=== PATIENT | male | born 1950 | race Asian ===

== ENCOUNTER 2017-02-26 22:02 | Emergency (ER) | payer OTHER ==
[~2017-02-26] VITALS: Ht 165.1 cm; Wt 69.0 kg
[2017-02-26 22:09] VITALS: Ht 165.1 cm; Wt 69.0 kg
[2017-02-26] MEDS ORDERED: [UNRECOGNIZED DRUG - OTHER] (23:39)
[2017-02-26] MEDS ORDERED: dm meds (23:39)
[2017-02-26] MEDS ORDERED: htn meds (23:39)
--- NOTE | 2017-02-26 23:41 | ERD ---
ER Documentation Chief Complaint Date/Time DATE: 02/26/17 TIME: 23:37 Chief Complaint right shoulder pain believes it's gout HPI 66-year-old male presents to emergency department for complaints of right shoulder pain started today. Patient drank some alcohol 4 hours prior to the pain, started to have the pain afterwards. Patient denies any trauma on affected area. Patient has history of gout, and is thinking that it may be gout flareup. Patient did not take any medications for pain. Patient denies any numbness or tingling. Patient denies any deformity. Patient has had the same type of pain before and it has been his gout flareup. Patient denies any redness or swelling. Patient denies any deformity. ROS All systems reviewed and are negative except as per history of present illness. Medications Home Meds Active Scripts Hydrocodone/Acetaminophen (Eure 5-325 Tablet) 1 Each Tablet, 1 TAB PO Q6H Y for SEVERE PAIN LEVEL 7-10, #20 TAB Prov:KATHLEEN PEÑA NP 02/27/17 Ibuprofen* (Motrin*) 600 Mg Tab, 600 MG PO Q6H Y for PAIN AND OR ELEVATED TEMP, #30 TAB Prov:KATHLEEN PEÑA RESISTOR COATER 02/27/17 Reported Medications [cardiac meds] Unknown Strength No Conflict Check 02/26/17 [htn meds] Unknown Strength No Conflict Check 02/26/17 [dm meds] Unknown Strength No Conflict Check 02/26/17 Allergies Allergies: Coded Allergies: No Known Allergy (Unverified , 02/26/17) PMhx/Soc Hx Miscellaneous Medical Probl: Yes (arthritis) Hx Alcohol Use: No Hx Substance Use: No Hx Tobacco Use: No Smoking Status: Never smoker FmHx Family History: No coronary disease, No diabetes, No other Physical Exam Vitals Vital Signs Date Time Temp Pulse Resp B/P Pulse Ox O2 Delivery O2 Flow Rate FiO2 02/26/17 22:09 97.6 83 20 135/85 99 Physical Exam GENERAL: The patient is well developed and appropriate for usual state of health, in no apparent distress. CHEST: Clear to auscultation bilaterally. There are no rales, wheezes or rhonchi. HEART: Regular rate and rhythm. No murmurs, clicks, rubs or gallops. No S3 or S4. ABDOMEN: Soft, nontender and nondistended. Good bowel sounds. No rebound or guarding. No gross peritonitis. No gross organomegaly or masses. No Zavala sign or McBurney point tenderness. BACK: No midline or flank tenderness. EXTREMITIES: Able To do full range of motion of the right shoulder without any restriction, mild tenderness on palpation on the anterior aspect of the right shoulder, no deformity noted, no crepitus noted. Equal pulses bilaterally. full range of motion of other joints of the body. Grossly neurovascularly intact. NEURO: Alert and oriented. Cranial nerves 2-12 intact. Motor strength in all 4 extremities with 5/5 strength. Sensation grossly intact. Normal speech and gait. SKIN: There is no apparent rash or petechia. The skin is warm and dry. HEMATOLOGIC AND LYMPHATIC: There is no evidence of excessive bruising or lymphedema. No gross cervical, axillary, or inguinal lymphadenopathy. Results 24 hrs Current Medications Medications (Trade) Dose Ordered Sig/Nicky Route PRN Reason Start Time Stop Time Status Last Admin Dose Admin Ketorolac Tromethamine (Toradol) 60 mg ONCE STAT IM 02/27/17 00:29 02/27/17 00:33 DC Patient was given medication for pain here in emergency department, after treatment, patient verbalized feeling much better. Patient's pain is improved. PROCEDURE: Right shoulder. CLINICAL INDICATION: Pain. TECHNIQUE: Three views of the right shoulder. COMPARISON: None. FINDINGS: There is no fracture, dislocation or bone destruction. There are degenerative osteophytes about the acromioclavicular joint. Bone mineralization is within normal limits. There is no radiopaque foreign body or abnormal calcification. IMPRESSION: No acute fracture or dislocation. Right AC joint arthrosis. .Maynor Zelaya MD, MD Date Time Electronically viewed and signed by .Maynor Zelaya MD, on 02/27/2017 00:26 .T/ CC: KATHLEEN PEÑA RESISTOR COATER Procedures/MDM Medical Decision Making: Patient's pain is most likely consistent with a contusion or a sprain, can be also from the arthritis noted in the x-ray, can be from his gout. There is no suspicion for neurovascular compromise. Patient has intact sensation and circulation of the affected extremity. There is low suspicion for septic arthritis. Patient does not have any fever. Radiology exams of the affected area does not show any fracture or dislocation. Disposition: Home. Patient is given prescription for ibuprofen for pain, Eure for severe pain. Patient was advised to elevate the affected area and apply ice on affected area. Patient was advised that if symptoms are worse, numbness, tingling, high fever, unable to move joint, worsening symptoms, to return to emergency department immediately. Otherwise, patient is advised to follow up with the primary care doctor in 5-7 days for reevaluation of symptoms. Departure Diagnosis: Primary Impression: Shoulder pain Laterality: right Chronicity: acute Qualified Code: M25.511 - Acute pain of right shoulder Condition: Stable Patient Instructions: Shoulder Pain (Uncertain Cause) Additional Instructions: Patient is given prescription for ibuprofen for pain, Eure for severe pain. Patient was advised to elevate the affected area and apply ice on affected area. Patient was advised that if symptoms are worse, numbness, tingling, high fever, unable to move joint, worsening symptoms, to return to emergency department immediately. Otherwise, patient is advised to follow up with the primary care doctor in 5-7 days for reevaluation of symptoms. KATHLEEN PEÑA NP Feb 26, 2017 23:41
--- NOTE | 2017-02-27 00:26 | RADRPT ---
PROCEDURE: Right shoulder. CLINICAL INDICATION: Pain. TECHNIQUE: Three views of the right shoulder. COMPARISON: None. FINDINGS: There is no fracture, dislocation or bone destruction. There are degenerative osteophytes about the acromioclavicular joint. Bone mineralization is within normal limits. There is no radiopaque fore ign body or abnormal calcification. IMPRESSION: No acute fracture or dislocation. Right AC joint arthrosis. .Maynor Zelaya MD, MD Date Time Electronically viewed and signed by .Maynor Zelaya MD, on 02/27/2017 00:26 .T/
[2017-02-27] MEDS ORDERED: KETOROLAC 60 MG INJ IM STA (00:29)
[2017-02-27] MEDS ORDERED: IBUP-1542 PO (00:31)
[2017-02-27] MEDS ORDERED: HYDR-906 PO (00:31)
== END 2017-02-27 00:35 | disposition home or self-care (01) ==
LOC: FTE 22:02 → E/R 02-27 00:35
DX: M25.511 Pain in right shoulder (principal)
CPT/HCPCS: 73030; J1885

== ENCOUNTER 2017-03-08 19:34 | Emergency (ER) | payer OTHER ==
[~2017-03-08] VITALS: Ht 170.2 cm; Wt 69.0 kg
[~2017-03-08 19:34] MED LIST: HYDR-906 PO; IBUP-1542 PO; [UNRECOGNIZED DRUG - OTHER]; dm meds; htn meds
[2017-03-08 19:36] VITALS: Ht 170.2 cm; Wt 69.0 kg
[2017-03-08] MEDS ORDERED: KETOROLAC 15 MG INJ IM STA (20:20)
[2017-03-08] MEDS ORDERED: ACETAMINOPHEN 325 MG TAB PO ONE (20:30)
--- NOTE | 2017-03-08 21:11 | ERD ---
ER Documentation Chief Complaint Date/Time DATE: 03/08/17 TIME: 21:06 Chief Complaint right shoulder pain , denies injury, hx- arthritis HPI This pleasant 66-year-old male patient presents to emergency department today with complaint of right shoulder pain. Patient has history of arthritis reports he has been seen here in this hospital, received a Toradol injection which helped with his pain. Patient states that unfortunately the day he was here the weight was extremely long and he left after waiting for 6 hours without being seen. Patient has been seen by his primary care physician, has an orthopedic referral next week. Patient reports current pain is 9/10 out of pain scale. He is unable to abduct or adduct at this time he is unable to move his arm forward, patient states once pain is controlled he is able to move his arm freely. She denies history of frozen shoulder, denies numbness or tingling to his fingers, denies any injury. Patient denies chest pain, shortness of breath, palpitations, or dizziness. Chart review PROCEDURE: Right shoulder. CLINICAL INDICATION: Pain. TECHNIQUE: Three views of the right shoulder. COMPARISON: None. FINDINGS: There is no fracture, dislocation or bone destruction. There are degenerative osteophytes about the acromioclavicular joint. Bone mineralization is within normal limits. There is no radiopaque foreign body or abnormal calcification. IMPRESSION: No acute fracture or dislocation. Right AC joint arthrosis. .Maynor Zelaya MD, MD Date Time Electronically viewed and signed by .Maynor Zelaya MD, MD on 02/27/2017 00:26 ROS All systems reviewed and are negative except as per history of present illness. Medications Home Meds Active Scripts Hydrocodone/Acetaminophen ([place] 5-325 Tablet) 1 Each Tablet, 1 TAB PO Q6H Y for SEVERE PAIN LEVEL 7-10, #20 TAB Prov:KATHLEEN PEÑA HEEL ATTACHER [employer]OD 02/27/17 Ibuprofen* (Motrin*) 600 Mg Tab, 600 MG PO Q6H Y for PAIN AND OR ELEVATED TEMP, #30 TAB Prov:KATHLEEN PEÑA NP 02/27/17 Reported Medications [cardiac meds] Unknown Strength No Conflict Check 02/26/17 [htn meds] Unknown Strength No Conflict Check 02/26/17 [dm meds] Unknown Strength No Conflict Check 02/26/17 Allergies Allergies: Coded Allergies: No Known Allergy (Unverified , 02/26/17) PMhx/Soc Hx Miscellaneous Medical Probl: Yes (arthritis) Hx Alcohol Use: No Hx Substance Use: No Hx Tobacco Use: No Smoking Status: Never smoker Physical Exam Vitals Vital Signs Date Time Temp Pulse Resp B/P Pulse Ox O2 Delivery O2 Flow Rate FiO2 03/08/17 19:36 97.4 87 20 176/94 100 Vital stable, triage note reviewed Physical Exam Const: Obviously uncomfortable, no acute distress Head: Atraumatic Eyes: Normal Conjunctiva ENT: Normal External Ears, Nose and Mouth. Neck: Resp: Cardio: Abd: Skin: Back: Ext: Upper Extremity -right arm Skin: No laceration, or evidence of external trauma Compartments: Soft Motor: Passive range of motion minimal, and able to abduct or abduct. Unable to raise arm forward. Sensation: Intact shoulder/pinky/middle finger/thumb web space Bones: Point tender humerus Snuffbox: Nontender Joints: No effusion Pulses/Perfusion: 2+ radial, Capillary refill < 2 seconds Neur: Awake and alert Psych: Normal Mood and Affect Results 24 hrs Current Medications Medications (Trade) Dose Ordered Sig/Nicky Route PRN Reason Start Time Stop Time Status Last Admin Dose Admin Ketorolac Tromethamine (Toradol) 15 mg ONCE STAT IM 03/08/17 20:20 03/08/17 20:22 DC 03/08/17 20:50 Acetaminophen (Tylenol Tab) 650 mg ONCE ONCE PO 03/08/17 20:30 03/08/17 20:31 DC 03/08/17 20:50 Procedures/MDM This pleasant 66-year-old male patient presents to the emergency department today for evaluation of right shoulder pain. History of arthritis. Patient has been seen previously here in emergency room left without fully being seen had x-rays taken at that time with findings: There is no fracture, dislocation or bone destruction. There are degenerative osteophytes about the acromioclavicular joint. Bone mineralization is within normal limits. There is no radiopaque foreign body or abnormal calcification. Patient has appointment with rn orthopedic in approximately 7 days patient is here today for pain control. He has no associated numbness or tingling. He has no cardiovascular complaints or irregularity. Patient is taking diclofenace with no relief of symptoms. Patient is treated with a Toradol injection and Tylenol in emergency department with pain decreasing to 7/10 on pain scale. I feel patient can be discharged home with Ultram and a short dose of prednisone. I feel the patient is stable for discharge at this time. I have discussed results , examination findings, the treatment plan with the patient and family present prior to discharge. Indications for emergent reevaluation, side effects of medication were also discussed. All questions were answered. Patient verbalizes understanding and agrees with plan of care. Departure Diagnosis: Primary Impression: Degenerative joint disease, shoulder, right Osteoarthritis type: unspecified Qualified Code: M19.011 - Osteoarthritis of right shoulder, unspecified osteoarthritis type Condition: Good Patient Instructions: Osteoarthritis: Managing Pain Additional Instructions: Thank you for for coming to [facility] for your care today. Please ask your nurse or provider if you have questions about your care today and do not leave until all your questions have been answered. Please use any medications given as directed and follow-up with your doctor (or the doctor you were referred to) in the next 2-3 days. If you do not have a primary care doctor you may follow up at the [facility] (listed below). You may also use motrin and tylenol as needed for fever and/or pain unless instructed otherwise by your provider or nurse. Indications for more urgent follow-up have been discussed, but you may return to the Emergency Department at ANY time for any worrisome or worsening symptoms. If you have abdominal pain, please know that no test or exam you received is perfect and you should follow up within 8 hours for continued pain. If you had any imaging studies today, such as an X-Ray or CT Scan, these studies will be reviewed later by a radiologist. You will be called if there are important findings that were not identified today, so make sure the contact information you provided at registration is correct. If you received any narcotic pain control medicine today, such as Vicodin, Morphine or Dilaudid, your coordination and judgment may be affected for a number of hours. Please do not drive or operate heavy machinery, and you may want someone to assist you at home. If you were given a prescription for narcotic medication, be aware that it is very addictive- use sparingly and only if necessary. HARRY FABIAN Mar 08, 2017 21:11
[2017-03-08] MEDS ORDERED: TRAM50TA2 PO (21:23)
[2017-03-08] MEDS ORDERED: PRED20TA PO (21:23)
== END 2017-03-08 21:38 | disposition home or self-care (01) ==
LOC: FTE 19:34
DX: M19.011 Primary osteoarthritis, right shoulder (principal)
CPT/HCPCS: 96372; 99284; J1885

== ENCOUNTER 2017-05-04 10:29 | Emergency (ER) | payer OTHER ==
[~2017-05-04] VITALS: Ht 157.5 cm; Wt 60.0 kg
[~2017-05-04 10:29] MED LIST changes: +PRED20TA PO; +TRAM50TA2 PO
[2017-05-04 10:32] VITALS: Ht 157.5 cm; Wt 60.0 kg
[2017-05-04] MEDS ORDERED: HYDROCODONE/APAP (5/325) TAB PO ONE (11:00)
--- NOTE | 2017-05-04 12:34 | RADRPT ---
PROCEDURE: XR Knee. CLINICAL INDICATION: Knee pain TECHNIQUE: Three views of the left knee are available for review. COMPARISON: None available FINDINGS: The medial and lateral femorotibial compartments are preserved. Mild marginal productive change is noted at the patella. There is a faint cortical density seen at the lateral margin of the tibial vera teau which could be related to avulsion fracture, although age indeterminate. Large joint effusion. Atherosclerotic vascular calcifications are present. IMPRESSION: 1. No acute osseous abnormality. 2. Faint cortical fragment at the lateral margin of the tibial plateau, which could represent a cap sular avulsion injury although age indeterminate. Consider MRI for better evaluation of the soft ti ssues if there is concern for ligament injury. 3. Large joint effusion. RPTAT: EE .Zane Saravia MD, MD Date Time Electronically viewed and signed by .Zane Saravia MD, on 05/04/2017 12:34 .d/
--- NOTE | 2017-05-04 12:34 | RADRPT ---
PROCEDURE: XR Femur. CLINICAL INDICATION: Knee/distal femoral injury TECHNIQUE: AP and lateral views of the left femur were obtained. COMPARISON: No prior studies are available for comparison. FINDINGS: There is no acute osseous abnormality or evidence of fracture. Mild nonuniform narrowing is noted a bout the left hip. Mild symphysis pubis degeneration is seen. Marginal productive changes seen at the partially assessed SI joints. Atherosclerotic vascular calcifications are present. IMPRESSION: 1. No acute osseous abnormality. 2. Mild left hip arthrosis. RPTAT: EE .Zane Saravia MD, MD Date Time Electronically viewed and signed by .Zane Saravia MD, MD on 05/04/2017 12:34 .d/
[2017-05-04] MEDS ORDERED: HYDR-906 PO (13:07)
[2017-05-04] MEDS ORDERED: IBUP400T22 PO (13:15)
--- NOTE | 2017-05-04 15:51 | ERD ---
ER Documentation Chief Complaint Date/Time DATE: 05/04/17 TIME: 15:46 Chief Complaint LEFT KNEE PAIN, HEAVY OBJECT FELL ON IT 2 DAYS AGO HPI 66-year-old male patient with a past medical history of diabetes presents to the ED complaining of a left knee injury that occurred 2 days ago. 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 Denies any fever, weakness, numbness or tingling , loss of sensation, loss of range of motion, nausea, vomiting. ROS All systems reviewed and are negative except as per history of present illness. Medications Home Meds Active Scripts Ibuprofen* (Motrin*) 400 Mg Tab, 400 MG PO Q6, #30 TAB Prov:GABE WHALEY PA-C 05/04/17 Hydrocodone/Acetaminophen (Kingston 5-325 Tablet) 1 Each Tablet, 1 TAB PO Q6H Y for PAIN, #14 TAB Prov:GABE WHALEY PA-C 05/04/17 Tramadol HCl (Tramadol HCl) 50 Mg Tablet, 50 MG PO Q6, #20 TAB Prov:RUI,HARRY 03/08/17 Prednisone* (Prednisone*) 20 Mg Tab, 40 MG PO DAILY for 4 Days, TAB Prov:RUI,HARRY 03/08/17 Hydrocodone/Acetaminophen ([place] 5-325 Tablet) 1 Each Tablet, 1 TAB PO Q6H Y for SEVERE PAIN LEVEL 7-10, #20 TAB Prov:KATHLEEN PEÑA NP 02/27/17 Ibuprofen* (Motrin*) 600 Mg Tab, 600 MG PO Q6H Y for PAIN AND OR ELEVATED TEMP, #30 TAB Prov:KATHLEEN PEÑA NP 02/27/17 Reported Medications [cardiac meds] Unknown Strength No Conflict Check 02/26/17 [htn meds] Unknown Strength No Conflict Check 02/26/17 [dm meds] Unknown Strength No Conflict Check 02/26/17 Allergies Allergies: Coded Allergies: No Known Allergy (Unverified , 02/26/17) PMhx/Soc Medical and Surgical Hx: pt denies Medical Hx, pt denies Surgical Hx Hx Miscellaneous Medical Probl: Yes (arthritis) Hx Alcohol Use: No Hx Substance Use: No Hx Tobacco Use: No Smoking Status: Never smoker Physical Exam Vitals Vital Signs Date Time Temp Pulse Resp B/P Pulse Ox O2 Delivery O2 Flow Rate FiO2 05/04/17 10:32 98.1 86 20 126/71 99 Physical Exam Const: [id number], well-nourished. In no acute distress. Head: Atraumatic, normocephalic Eyes: Normal Conjunctiva without injection ENT: Normal external ear, nose and mouth. Neck: Full range of motion. No meningismus. Resp: Clear to auscultation bilaterally. No wheezing, rhonchi, rales, or crackles. No accessory muscle use. No retractions. Cardio: Regular rate and rhythm, no murmurs Skin: No petechiae or rashes Back: No midline tenderness. No CVA tenderness. Ext: No cyanosis, or edema. Cap refill less than 2 seconds. Distal pulses intact bilaterally. Tenderness to palpation of the left medial and lateral aspect of patient's left knee. Ecchymosis noted over the distal femur. No erythema noted. Slight edema noted over the superior knee. Patient was able to flex, extend bilateral knees and all other extremities have full range of motion. Neur: Awake and alert. Normal gait and coordination. Muscle strength 5/5. Sensation intact bilaterally. Psych: Normal Mood and Affect Results 24 hrs Current Medications Medications (Trade) Dose Ordered Sig/Nicky Route PRN Reason Start Time Stop Time Status Last Admin Dose Admin Acetaminophen/ Hydrocodone Bitart (King[place] (5/325)) 1 tab ONCE ONCE PO 05/04/17 11:00 05/04/17 11:01 DC 05/04/17 10:54 Procedures/MDM This is a 66-year-old male patient with a past medical history of diabetes presents to the ED with a left knee injury. Patient is afebrile and nontoxic- appearing. Patient has normal vital signs. A left knee x-ray, left femur x- ray was ordered to further evaluate patient. PROCEDURE: XR Femur. CLINICAL INDICATION: Knee/distal femoral injury TECHNIQUE: AP and lateral views of the left femur were obtained. COMPARISON: No prior studies are available for comparison. FINDINGS: There is no acute osseous abnormality or evidence of fracture. Mild nonuniform narrowing is noted about the left hip. Mild symphysis pubis degeneration is seen. Marginal productive changes seen at the partially assessed SI joints. Atherosclerotic vascular calcifications are present. IMPRESSION: 1. No acute osseous abnormality. 2. Mild left hip arthrosis. PROCEDURE: XR Knee. CLINICAL INDICATION: Knee pain TECHNIQUE: Three views of the left knee are available for review. COMPARISON: None available FINDINGS: The medial and lateral femorotibial compartments are preserved. Mild marginal productive change is noted at the patella. There is a faint cortical density seen at the lateral margin of the tibial plateau which could be related to avulsion fracture, although age indeterminate. Large joint effusion. Atherosclerotic vascular calcifications are present. IMPRESSION: 1. No acute osseous abnormality. 2. Faint cortical fragment at the lateral margin of the tibial plateau, which could represent a capsular avulsion injury although age indeterminate. Consider MRI for better evaluation of the soft tissues if there is concern for ligament injury. 3. Large joint effusion. Patient is placed in a left knee immobilizer. Crutches were given to help with ambulation. Splint Assessment: Neurovascularly intact pre and post splint placement with good fit. Patient could likely have a faint cortical fragment at the lateral margin of the tibial plateau, which could represent a capsular avulsion injury although age indeterminate. Patient's extremity symptoms have stabilized while they have been evaluated in the department and are appropriate for outpatient follow up. No evidence of dislocations, compartment syndrome, neurologic injury, vascular injury, open joint, open fracture, tendon laceration, septic arthritis , osteomyelitis, DVT, foreign body, or other emergent conditions. This case was discussed with with my supervising physician, Dr. Salter who agreed with the management and discharge plan. Discharge medications: Ibuprofen, [place] Follow up with primary care physician in 1-2 days for a referral to orthopedic physician. Instructed patient to return to the ED sooner for any worsening symptoms. Patient's questions were answered. Patient understood and agreed with discharge plan. Patient discharged stable. Departure Diagnosis: Primary Impression: Knee injury Encounter type: initial encounter Laterality: left Qualified Code: S89.92XA - Knee injury, left, initial encounter Condition: Stable Patient Instructions: Reducing Knee Pain and Swelling, Fracture, Knee Referrals: JOLENE DOWLING MD (PCP) [facility] YOU HAVE RECEIVED A MEDICAL SCREENING EXAM AND THE RESULTS INDICATE THAT YOU DO NOT HAVE A CONDITION THAT REQUIRES URGENT TREATMENT IN THE EMERGENCY DEPARTMENT. FURTHER EVALUATION AND TREATMENT OF YOUR CONDITION CAN WAIT UNTIL YOU ARE SEEN IN YOUR DOCTORS OFFICE WITHIN THE NEXT 1-2 DAYS. IT IS YOUR RESPONSIBILITY TO MAKE AN APPOINTMENT FOR FOLOW-UP CARE. IF YOU HAVE A PRIMARY DOCTOR --you should call your primary doctor and schedule an appointment IF YOU DO NOT HAVE A PRIMARY DOCTOR YOU CAN CALL OUR PHYSICIAN REFERRAL HOTLINE AT IF YOU CAN NOT AFFORD TO SEE A PHYSICIAN YOU CAN CHOSE FROM THE FOLLOWING [facility] [address] [facility] [address] [facility] [address] [facility] [address] [facility] [address] [facility]. [facility] [address] [facility] [facility] YOU HAVE RECEIVED A MEDICAL SCREENING EXAM AND THE RESULTS INDICATE THAT YOU DO NOT HAVE A CONDITION THAT REQUIRES URGENT TREATMENT IN THE EMERGENCY DEPARTMENT. FURTHER EVALUATION AND TREATMENT OF YOUR CONDITION CAN WAIT UNTIL YOU ARE SEEN IN YOUR DOCTORS OFFICE WITHIN THE NEXT 1-2 DAYS. IT IS YOUR RESPONSIBILITY TO MAKE AN APPOINTMENT FOR FOLOW-UP CARE. IF YOU HAVE A PRIMARY DOCTOR --you should call your primary doctor and schedule and appointment IF YOU DO NOT HAVE A PRIMARY DOCTOR YOU CAN CALL OUR PHYSICIAN REFERRAL HOTLINE AT . IF YOU CAN NOT AFFORD TO SEE A PHYSICIAN YOU CAN CHOSE FROM THE FOLLOWING PENDING SALE TO [facility]: [facility] [address] [place] [address] [facility] [address] [place] [address] [facility] [address] [place] [address] [facility] Urgent Care 7 a.m.- 11 p.m. Every Day of the Week NO APPOINTMENT OR AUTHORIZATION NEEDED SO [facility] Hours: Mon-Fri 9:00 AM - 5:00 PM Additional Instructions: FOLLOW UP WITH YOUR PRIMARY CARE PHYSICIAN TOMORROW for a referral to orthopedic physician for further evaluation, treatment, and MRI.Return to this facility if you are not improving as expected. GABE WHALEY PA-C May 04, 2017 15:51
== END 2017-05-04 14:15 | disposition home or self-care (01) ==
LOC: FTE 10:29
DX: S89.92XA Unspecified injury of left lower leg, initial encounter (principal); E11.9 Type 2 diabetes mellitus without complications; W20.8XXA Other cause of strike by thrown, projected or falling object, initial encounter; Y92.9 Unspecified place or not applicable
CPT/HCPCS: 73550; 73562

== ENCOUNTER 2019-01-18 16:30 | Emergency (ER) | payer OTHER ==
[~2019-01-18] VITALS: Wt 91.0 kg
[~2019-01-18 16:30] MED LIST changes: +HYDR-4011 PO; -HYDR-906 PO; +IBUP-1561 PO
[2019-01-18 16:33] VITALS: BP 154/86; PULSE 72; RESP 18
[2019-01-18] MEDS ORDERED: ONDANSETRON (ODT) 4 MG TAB ODT STA (19:09)
[2019-01-18] MEDS ORDERED: morphine 4 MG/ML VIAL IM STA (19:09)
--- NOTE | 2019-01-18 19:16 | ERD ---
ER Documentation Chief Complaint Chief Complaint LAC TO RIGHT SHOULDER HPI Patient presents with complaint of right upper arm pain and laceration s/p seeing machine that "cuts Belia's" that grabbed the sleeve of his right arm pulling his arm into the machine. 1630 today. 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 ROS All systems reviewed and are negative except as per history of present illness. Medications Home Meds Active Scripts Hydrocodone/Acetaminophen ([place] 5-325 Tablet) 1 Each Tablet, 1 TAB PO Q6H PRN for PAIN for 5 Days, #15 TAB Prov:HERNESTO MARTÍNEZ NP 01/18/19 Cephalexin* (Cephalexin*) 500 Mg Capsule, 500 MG PO BID for 5 Days, #10 CAP Prov:HERNESTO MARTÍNEZ NP 01/18/19 Ibuprofen* (Motrin*) 400 Mg Tab, 400 MG PO Q6, #30 TAB Prov:GABE WHALEY PA-C 05/04/17 Hydrocodone/Acetaminophen ([place] 5-325 Tablet) 1 Each Tablet, 1 TAB PO Q6H PRN for PAIN, #14 TAB Prov:GABE WHALEY PA-C 05/04/17 Tramadol HCl (Tramadol HCl) 50 Mg Tablet, 50 MG PO Q6, #20 TAB Prov:RUI,HARRY 03/08/17 Prednisone* (Prednisone*) 20 Mg Tab, 40 MG PO DAILY for 4 Days, TAB Prov:RUI,HARRY 03/08/17 Hydrocodone/Acetaminophen ([place] 5-325 Tablet) 1 Each Tablet, 1 TAB PO Q6H PRN for SEVERE PAIN LEVEL 7-10, #20 TAB Prov:KATHLEEN PEÑA NP 02/27/17 Ibuprofen* (Motrin*) 600 Mg Tab, 600 MG PO Q6H PRN for PAIN AND OR ELEVATED TEMP, #30 TAB Prov:KATHLEEN PEÑA NP 02/27/17 Reported Medications [cardiac meds] Unknown Strength No Conflict Check 02/26/17 [htn meds] Unknown Strength No Conflict Check 02/26/17 [dm meds] Unknown Strength No Conflict Check 02/26/17 Allergies Allergies: Coded Allergies: No Known Allergy (Unverified , 02/26/17) PMhx/Soc Medical and Surgical Hx: pt denies Surgical Hx Hx Cardiac Disorders: Yes (HTN) Hx Miscellaneous Medical Probl: Yes (arthritis) Hx Alcohol Use: Yes Hx Substance Use: No Hx Tobacco Use: Yes Smoking Status: Light tobacco smoker Physical Exam Vitals Vital Signs Date Temp Pulse Resp B/P (MAP) Pulse Ox O2 O2 Flow FiO2 Time Delivery Rate 01/18/19 98.1 72 18 154/86 99 16:33 (108) Physical Exam Const: No acute distress Head: Atraumatic Eyes: Normal Conjunctiva ENT: Normal External Ears, Nose and Mouth. Neck: Full range of motion. No meningismus. Resp: Clear to auscultation bilaterally Cardio: Regular rate and rhythm, no murmurs Abd: Soft, non tender, non distended. Normal bowel sounds Skin: No petechiae or rashes Back: No midline or flank tenderness Ext: RUE: brusing to upper arm, large laceration to bicep area, sensation intact, pulses +2, flexion limited to 45 degrees, point tenderness at head of humerus Neur: Awake and alert Psych: Normal Mood and Affect Results 24 hrs Current Medications Medications Dose Sig/Nicky Start Time Status Last (Trade) Ordered Route PRN Stop Time Admin Dose Reason Admin Ondansetron 4 mg ONCE STAT 01/18/19 DC 01/18/19 HCl (Zofran ODT 19:09 01/18/19 19:39 Odt) 19:11 Morphine 4 mg ONCE STAT 01/18/19 DC 01/18/19 Sulfate IM 19:09 01/18/19 19:40 (morphine) 19:11 Lidocaine/ 20 ml ONCE ONCE 01/18/19 DC Epinephrine INJ 20:30 01/18/19 (Xylocaine 20:31 2%/ Epi (Mdv) 20 ml) Diphtheria/ 0.5 ml ONCE ONCE 01/18/19 DC 01/18/19 Tetanus/Acell IM* 21:30 01/18/19 21:29 Pertussis 21:31 (Adacel) LACERATION REPAIR Wound was copiously irrigated with normal saline. Wound was prepared in standard sterile fashion. Adequate anesthesia was obtained with lidocaine 1% with epi. Wound had 2 edges that joined at a 90 degree angle with the superior surface 3 cm and superior surface 2 cm. A total of 7 sutures of 4-0 Ethilon were used in a simple interrupted fashion. +CSM post-procedure. Wound was dressed with Telfa and Kerlix dressing. Patient was instructed on care of wound and signs of infection and when to return for recheck and to have sutures rem harley. Patient verbalized understanding and tolerated procedure well. Procedures/MDM X-rays of shoulder arm did not show fracture, location, or presence of foreign body. Patient states he has primary care physician and is reliable for close follow-up with physician. Verbalizes understanding of care of wound and need for close follow-up. Patient patient and daughter verbalized understanding of discharge instructions. Patient is being discharged for follow-up with primary care pancho murray. The laceration did not appear to have any tendon involvement or neurovascular compromise. Departure Diagnosis: Primary Impression: Laceration Additional Impression: Shoulder sprain HERNESTO MARTÍNEZ NP Jan 18, 2019 19:16
[2019-01-18] MEDS ORDERED: LIDOCAINE 2%/EPI (MDV) 20ML INJ INJ ONE (20:30)
[2019-01-18] MEDS ORDERED: DIPHTH/TET/ACEL PERTUSS (ADULT) 0.5 ML VIAL IM* ONE (21:30)
[2019-01-18] MEDS ORDERED: CEPH500C PO (21:31)
[2019-01-18] MEDS ORDERED: HYDR-4011 PO (21:31)
== END 2019-01-18 22:08 | disposition home or self-care (01) ==
LOC: FTE 16:30
DX: S41.011A Laceration without foreign body of right shoulder, initial encounter (principal); I10 Essential (primary) hypertension; F17.210 Nicotine dependence, cigarettes, uncomplicated; W31.1XXA Contact with metalworking machines, initial encounter; Y92.89 Other specified places as the place of occurrence of the external cause; Z23 Encounter for immunization
CPT/HCPCS: 12002; 73030; 73060; 90471; 90715; 96372; 99284; J2270

== ENCOUNTER 2019-01-21 18:39 | Emergency (ER) | payer OTHER ==
[~2019-01-21] VITALS: Ht 167.6 cm; Wt 68.6 kg
[~2019-01-21 18:39] MED LIST changes: +CEPH500C PO
[2019-01-21 19:13] VITALS: Ht 167.6 cm; Wt 68.6 kg
[2019-01-21] MEDS ORDERED: MUPI22OI2 TOP (20:53)
--- NOTE | 2019-01-21 20:57 | ERD ---
ER Documentation Chief Complaint Chief Complaint wound check to left arm had 7 stitches placed monday. HPI 68-year-old male presents for wound check status post right upper extremity laceration repair. He was here about 3 days ago. Denies any fevers or chills. He is on antibiotics. States that his pain is controlled. ROS All systems reviewed and are negative except as per history of present illness. Medications Home Meds Active Scripts Mupirocin* (Bactroban*) 2% -22 Gram Oint...g., 1 APPLIC TOP BID for 7 Days, #1 EA Prov:THOMASCALEB 01/21/19 Hydrocodone/Acetaminophen ([place] 5-325 Tablet) 1 Each Tablet, 1 TAB PO Q6H PRN for PAIN for 5 Days, #15 TAB Prov:HERNESTO MARTÍNEZ NP 01/18/19 Cephalexin* (Cephalexin*) 500 Mg Capsule, 500 MG PO BID for 5 Days, #10 CAP Prov:HERNESTO MARTÍNEZ NP 01/18/19 Ibuprofen* (Motrin*) 400 Mg Tab, 400 MG PO Q6, #30 TAB Prov:GABE WHALEY PA-C 05/04/17 Hydrocodone/Acetaminophen ([place] 5-325 Tablet) 1 Each Tablet, 1 TAB PO Q6H PRN for PAIN, #14 TAB Prov:GABE WHALEY PA-C 05/04/17 Tramadol HCl (Tramadol HCl) 50 Mg Tablet, 50 MG PO Q6, #20 TAB Prov:RUI,HARRY 03/08/17 Prednisone* (Prednisone*) 20 Mg Tab, 40 MG PO DAILY for 4 Days, TAB Prov:RUI,HARRY 03/08/17 Hydrocodone/Acetaminophen ([place] 5-325 Tablet) 1 Each Tablet, 1 TAB PO Q6H PRN for SEVERE PAIN LEVEL 7-10, #20 TAB Prov:KATHLEEN PEÑA NP 02/27/17 Ibuprofen* (Motrin*) 600 Mg Tab, 600 MG PO Q6H PRN for PAIN AND OR ELEVATED TEMP, #30 TAB Prov:KATHLEEN PEÑA NP 02/27/17 Reported Medications [cardiac meds] Unknown Strength No Conflict Check 02/26/17 [htn meds] Unknown Strength No Conflict Check 02/26/17 [dm meds] Unknown Strength No Conflict Check 02/26/17 Allergies Allergies: Coded Allergies: No Known Allergy (Unverified , 01/21/19) PMhx/Soc Medical and Surgical Hx: pt denies Surgical Hx Hx Cardiac Disorders: Yes (HTN) Hx Miscellaneous Medical Probl: Yes (arthritis) Hx Alcohol Use: Yes Hx Substance Use: No Hx Tobacco Use: Yes Smoking Status: Current every day smoker Physical Exam Vitals Vital Signs Date Temp Pulse Resp B/P (MAP) Pulse Ox O2 O2 Flow FiO2 Time Delivery Rate 01/21/19 97.1 69 16 142/73 98 19:13 (96) Physical Exam Const: No acute distress Resp: Clear to auscultation bilaterally Cardio: Regular rate and rhythm, no murmurs Skin: No petechiae or rashes Ext: Right upper arm laceration repair site clean dry and intact, no signs of infection Neur: Awake and alert, bilateral upper extremity sensation intact Psych: Normal Mood and Affect Procedures/MDM Medical Decision Making: Patient status post laceration repair of the right upper arm. The parasite clean dry and intact. No signs of infection. Patient is neurov ascularly intact Patient appeared well on physical exam. Advised to return to the ER in 5 to 7 days for suture removal Advised to continue with antibiotics. Patient given prescription for Bactroban Patient advised to follow up with PCP in 1-2 days. Patient advised to return to ED for new or worsening symptoms. Patient stable on discharge from the ED. Disclaimer: Inadvertent spelling and grammatical errors are likely due to EHR/dictation software use and do not reflect on the overall quality of patient care. Also, please note that the electronic time recorded on this note does not necessarily reflect the actual time of the patient encounter. Departure Diagnosis: Primary Impression: Encounter for wound re-check Condition: Fair Patient Instructions: Wound Care Referrals: COMMUNITY CLINICS YOU HAVE RECEIVED A MEDICAL SCREENING EXAM AND THE RESULTS INDICATE THAT YOU DO NOT HAVE A CONDITION THAT REQUIRES URGENT TREATMENT IN THE EMERGENCY DEPARTMENT. FURTHER EVALUATION AND TREATMENT OF YOUR CONDITION CAN WAIT UNTIL YOU ARE SEEN IN YOUR DOCTORS OFFICE WITHIN THE NEXT 1-2 DAYS. IT IS YOUR RESPONSIBILITY TO MAKE AN APPOINTMENT FOR FOLOW-UP CARE. IF YOU HAVE A PRIMARY DOCTOR --you should call your primary doctor and schedule an appointment IF YOU DO NOT HAVE A PRIMARY DOCTOR YOU CAN CALL OUR PHYSICIAN REFERRAL HOTLINE AT IF YOU CAN NOT AFFORD TO SEE A PHYSICIAN YOU CAN CHOSE FROM THE FOLLOWING [facility] CL[facility]ICS [facility] [address] [facility] [address] [facility] [facility] [address] [facility]. [facility] [address] [facility] [address] [facility]. [facility]. [address] Additional Instructions: Call your primary care doctor TOMORROW for an appointment during the next 1-2 days.See the doctor sooner or return here if your condition worsens before your appointment time. CALEB GUZMAN DO Jan 21, 2019 20:57
[2019-01-21 21:02] VITALS: BP 145/82; PULSE 62; RESP 15
== END 2019-01-21 21:02 | disposition home or self-care (01) ==
LOC: FTE 18:39
DX: Z48.01 Encounter for change or removal of surgical wound dressing (principal); I10 Essential (primary) hypertension; F17.210 Nicotine dependence, cigarettes, uncomplicated
CPT/HCPCS: 99283